=== PATIENT | female | born 1985 | race African-American/Black ===

== ENCOUNTER 2019-07-25 08:48 | Emergency (ER) | payer MEDICAID ==
[~2019-07-25] VITALS: Ht 165.1 cm; Wt 73.0 kg
[2019-07-25 09:37] VITALS: BP 120/77
== END 2019-07-25 09:38 | disposition home or self-care (01) ==
LOC: ER 08:48
DX: S80.861A Insect bite (nonvenomous), right lower leg, initial encounter (principal); S60.562A Insect bite (nonvenomous) of left hand, initial encounter; S60.561A Insect bite (nonvenomous) of right hand, initial encounter; F12.10 Cannabis abuse, uncomplicated; F17.200 Nicotine dependence, unspecified, uncomplicated; W57.XXXA Bitten or stung by nonvenomous insect and other nonvenomous arthropods, initial encounter; Y93.89 Activity, other specified; Y92.89 Other specified places as the place of occurrence of the external cause; Y99.8 Other external cause status
CPT/HCPCS: 99283